=== PATIENT | male | born 1970 | race African-American/Black ===

== ENCOUNTER 2021-09-30 12:56 | Emergency (ER) | payer OTHER ==
[~2021-09-30] VITALS: Ht 172.7 cm; Wt 95.5 kg
[2021-09-30 13:07] VITALS: TEMP 98.4
[2021-09-30] MEDS ORDERED: COZAAR 25MG25 MG/TAB PO (13:15)
[2021-09-30] MEDS ORDERED: JANUMET 1000 MG1 TA1 PO (13:15)
[2021-09-30] MEDS ORDERED: MILLIPRED DP5 MG PO (13:16)
[2021-09-30] MEDS ORDERED: FARXIGA5 PO (13:16)
[2021-09-30] MEDS ORDERED: XARELTO20 MG PO (13:17)
[2021-09-30 14:41] VITALS: BP 140/96; PULSE 98
== END 2021-09-30 14:42 | disposition home or self-care (01) ==
LOC: COL.ER 12:56
DX: S80.12XA Contusion of left lower leg, initial encounter (principal); Z79.01 Long term (current) use of anticoagulants; Z86.718 Personal history of other venous thrombosis and embolism; W01.0XXA Fall on same level from slipping, tripping and stumbling without subsequent striking against object, initial encounter